=== PATIENT | male | born 1990 | race Caucasian/White ===

== ENCOUNTER 2020-06-07 16:05 | Emergency (ER) | payer MEDICAID, SELFPAY ==
[2020-06-07 16:06] VITALS: BP 137/87; PULSE 106; RESP 16; TEMP 36.3; O2SAT 99; BMI 29.9
[2020-06-07] MEDS: oxyCODONE 5 MG Tablet PO (16:53)
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
[2020-06-07 17:05] VITALS: PULSE 98; RESP 16; O2SAT 98
[2020-06-07] MEDS: BACITRACIN 15 GM Tube 1 APPLIC TOPICAL (17:08)
== END 2020-06-07 17:10 | disposition home or self-care (01) ==
PROVIDERS: Emergency Provider Student in an Organized Health Care Education/Training Program
DX: T23.172A Burn of first degree of left wrist, initial encounter (principal); T20.14XA Burn of first degree of nose (septum), initial encounter; Z87.891 Personal history of nicotine dependence
CPT/HCPCS: 99282